=== PATIENT | female | born 1940 | race Caucasian/White ===

== ENCOUNTER 2018-04-10 12:47 | Emergency (ER) | payer MEDICARE ==
[~2018-04-10] VITALS: Ht 165.1 cm; Wt 74.4 kg
[2018-04-10] MEDS ORDERED: CYMBALTA60 MG PO (13:04)
[2018-04-10] MEDS ORDERED: POLYMYXIN B/TMP10 ML OPHTHALMIC (13:04)
[2018-04-10] MEDS ORDERED: ASPIR 8181 MG PO (13:04)
[2018-04-10] MEDS ORDERED: TESSALON PERLE100 MG PO (13:04)
[2018-04-10] MEDS ORDERED: [UNRECOGNIZED DRUG - OTHER] PO (13:05)
[2018-04-10] MEDS ORDERED: LIPITOR40 MG PO (13:05)
[2018-04-10] MEDS ORDERED: NORVASC10 MG PO (13:05)
[2018-04-10] MEDS ORDERED: VITAMIN B12-FO1 EAC1 PO (13:06)
[2018-04-10] MEDS ORDERED: ANTA PO (13:06)
[2018-04-10 13:22] LABS: ABSOLUTE EOSINOPHILS 0.1 thou/uL (0.0-0.7); ABSOLUTE LYMPHOCYTES 2.5 thou/uL (0.8-5.3); ABSOLUTE MONOCYTES 0.6 thou/uL (0.0-1.2); ABSOLUTE NEUTROPHILS 3.1 thou/uL (1.6-8.1); BASOPHILS 0.5 %; EOSINOPHILS 1.6 %; HEMATOCRIT 35.6 % (37.0-47.0); HEMOGLOBIN 11.8 gm/dL (12.0-15.0); LYMPHOCYTES 40.2 %; MCH 29.8 pg (26.0-34.0); MCHC 33.2 g/dL (28.0-37.0); MPV 8.2 fl. (7.2-11.1); NUCLEATED RBCS 0 /100WBC; PLATELET COUNT* 208 thou/uL (150-400); POLYS 48.7 %; RBC 3.96 mil/uL (4.20-5.00); RDW-CV 13.6 % (10.5-14.5); WBC 6.3 thou/uL (4.0-11.0)
[2018-04-10 13:30] LABS: INR 1.1; PROTIME 10.4 Seconds (9.20-11.50)
[2018-04-10 13:46] LABS: ALBUMIN 3.3 g/dL (3.4-5.0); ALKALINE PHOSPHATASE 100 U/L (46-116); BUN 14 mg/dL (7-18); CALCIUM 8.8 mg/dL (8.5-10.1); CHLORIDE 106 mmol/L (98-107); CK-MB MASS < 0.5 ng/mL (<0.5-3.6); CREATININE 1.1 mg/dL (0.6-1.3); GLUCOSE 105 mg/dL (70-99); LIPASE 156 U/L (73-393); MAGNESIUM 1.9 mg/dL (1.8-2.4); NT-PRO BRAIN NAT PEPTIDE 147 pg/mL (<300); POTASSIUM 3.4 mmol/L (3.5-5.1); SGOT 25 U/L (15-37); SGPT 21 U/L (30-65); SODIUM 141 mmol/L (136-145); TOTAL BILIRUBIN 0.5 mg/dL (<0.1-1.0); TROPONIN-I LEVEL <0.06 ng/mL (<0.06)
[2018-04-10 13:52] LABS: ANION GAP 8 mmol/L (7-16); CO2 27 mmol/L (21-32)
[2018-04-10 14:58] VITALS: BP 168/72
--- NOTE | 2018-04-11 10:11 | EKG ---
[place] [address] ELECTROCARDIOGRAM REPORT Name: SHANIQUA HOLT Room: [facility]#: [id number] Admission: 04/10/18 Attend Phys: Discharge: 04/10/18 Date of : 38 Report #: [id number] THIS REPORT FOR: //name// [facility] ED Test Date: 2018-04-10 Test Time: 12:59:43 Pat Name: SHANIQUA HOLT Department: Room: Gender: F [employer]: : 1940 Requested By: Avinash Iverson Order Number: [id number] MD: Demarcus Arriaga Measurements Intervals [place] Rate: 95 P: 1 NM: 161 QRS: 2 QRSD: 92 T: 31 QT: 348 QTc: 438 Interpretive Statements Sinus rhythm No previous ECG available for comparison Electronically Signed On 04-11-2018 10:11:22 CDT by Demarcus Arriaga [email or web address] <ELECTRONICALLY SIGNED> By: Demarcus Arriaga MD, [facility] 04/11/18 1011 [id number] [id number] Demarcus Arriaga MD, FACC /EPI
== END 2018-04-10 14:58 | disposition home or self-care (01) ==
LOC: M.ERS 12:47
PROVIDERS: Family Medicine
DX: R60.0 Localized edema (principal); J45.909 Unspecified asthma, uncomplicated; Z85.42 Personal history of malignant neoplasm of other parts of uterus